=== PATIENT | male | born 1980 ===

== ENCOUNTER 2021-10-31 23:11 | Inpatient (IN) | payer OTHER ==
[~2021-10-31 23:11] MED LIST: Iopamidol 370 76% 100 ML VIAL ONE
[2021-10-31 23:33] LABS: Hemoglobin 15.2 g/dL (14.0-18.0); Mean Corpuscular HGB CONC 33.9 g/dL (32.0-36.0); Mean Corpuscular Hemoglobin 31.1 pg (27.0-31.0); Mean Corpuscular Volume 91.6 fL (78.0-98.0); Mean Platelet Volume 7.6 fL (7.4-10.4); Platelet Count 248 thou/uL (130-400); RBC Distribution Width 11.5 % (11.5-14.5); White Blood Cell (WBC) Count 9.6 thou/uL (4.8-10.8)
[2021-10-31] MEDS ORDERED: Boostrix 0.5 ML (Tdap) VIAL ONE (23:41)
[2021-10-31 23:44] LABS: Band 2 % (5-11); Lymphocytes 15 % (21-51); MDiff Complete? YES; Monocytes 6 % (0-10); Neutrophil 77 % (42-75)
[2021-10-31 23:45] LABS: PTT 23.5 sec (22.9-36.1); Prothrombin Time 13.6 sec (12.0-14.7)
[2021-10-31] MEDS ORDERED: Xylocaine 1% w/ Epi 1:100K 10 ML VIAL ONE (23:47)
[2021-10-31 23:50] LABS: ALT (SGPT) 54 U/L (8-55); AST (SGOT) 29 U/L (5-34); Acetaminophen Less than 6.0 mcg/mL (10.0-30.0); Albumin 4.2 g/dL (3.5-5.0); Alcohol Less than 10 mg/dL (Less than 10); Alkaline Phosphatase 80 U/L (40-110); Anion Gap 20 mmol/L (10-20); BUN (Urea Nitrogen) 21 mg/dL (8.9-20.6); Bilirubin, Total 0.7 mg/dL (0.2-1.2); Calc. Creatinine Clearance 0 mL/min (70-130); Carbon Dioxide 14 mmol/L (22-29); Chloride 104 mmol/L (98-107); Globulin 3.1 g/dL (2.4-3.5); Glucose 136 mg/dL (70-105); Potassium 3.9 mmol/L (3.5-5.1); Protein, Total 7.3 g/dL (6.0-8.3); Salicylate Less than 8.0 mg/dL (15.0-30.0); Sodium 134 mmol/L (136-145)
[2021-11-01] MEDS ORDERED: Morphine 4 MG/ML VIAL ONE (00:03)
[2021-11-01] MEDS ORDERED: Midazolam HCl 2 mg/2 ml Vial ONE (00:53)
[2021-11-01] MEDS ORDERED: Ketamine 50 MG/ML (10ML VIAL) ONE (00:53)
[2021-11-01] MEDS ORDERED: Ondansetron PF 4 MG/2 ML Vial ONE (00:59)
[2021-11-01] MEDS ORDERED: Dexamethasone 20 MG/5 ML VIAL ONE (00:59)
[2021-11-01] MEDS ORDERED: PROPOFOL 200 MG/20 ML VIAL ONE (00:59)
[2021-11-01] MEDS ORDERED: Rocuronium Bromide 10 MG/ML (10ML VIAL) ONE (00:59)
[2021-11-01] MEDS ORDERED: Glycopyrrolate 0.2 MG/ML 5 ML SYRINGE ONE (00:59)
[2021-11-01] MEDS ORDERED: Succinylcholine 200 MG/10 ml SYRINGE FS ONE (00:59)
[2021-11-01 01:02] LABS: SARS-CoV-2 NAA Rapid Test Not Detected (NotDetected)
[2021-11-01 01:09] LABS: Bacteria/HPF None Seen HPF (None Seen); Bilirubin Negative (Negative); Blood, Urine 1+ (Negative); Clarity Clear (Clear); Glucose, Urine (Dipstick) Normal (Negative); Ketone, Urine Negative (Negative); Leukocyte Negative Leu/uL (Negative); Nitrite Negative (Negative); Protein, Urine (Dipstick) 20 mg/dL (Neg-Trace); RBC/HPF 0-3 HPF (0-3); Squamous Epithelial None Seen HPF (0-3); Urobilinogen Normal mg/dL (Less than 2); WBC/HPF 0-3 HPF (0-3); pH, Urine 6.5 (5.0-9.0)
[2021-11-01 01:17] LABS: Amphetamine Detected (NotDetected); Barbiturates Screen Not Detected (NotDetected); Benzodiazepine Screen Not Detected (NotDetected); Cocaine Metabolite Screen Not Detected (NotDetected); Methadone Not Detected (NotDetected); Methamphetamine Detected (NotDetected); Opiate Screen Detected (NotDetected); Oxycodone Screen Not Detected (NotDetected); Phencyclidine (PCP) Not Detected (NotDetected); THC/Cannabinoid Screen Not Detected (NotDetected); Tricyclic Screen Not Detected (NotDetected)
[2021-11-01] MEDS ORDERED: Dextrose 50% Abboject 50 ML SYRINGE SLOW IVP PRN (01:19)
[2021-11-01] MEDS ORDERED: Dextrose 5% in Water 1,000 ML IV PRN (01:19)
[2021-11-01] MEDS ORDERED: Ondansetron PF 4 MG/2 ML Vial IVP PRN ×2 (01:19→03:47)
[2021-11-01] MEDS ORDERED: hydrALAZINE 20 MG/ML VIAL SLOW IVP PRN (01:19)
[2021-11-01] MEDS ORDERED: Morphine 4 MG/ML VIAL SLOW IVP PRN ×4 (01:19→03:43)
[2021-11-01] MEDS ORDERED: Fentanyl 250 MCG/5 ML VIAL ONE (01:24)
[2021-11-01] MEDS ORDERED: HYDROcodone/Acetaminophen 5/325 mg Tablet PO PRN (03:43)
[2021-11-01] MEDS ORDERED: Acetaminophen 325 MG TAB PO PRN ×2 (03:45→03:46)
[2021-11-01] MEDS ORDERED: Sodium Chloride 0.9% 1,000 ML IV SCH (04:00)
[2021-11-01] MEDS ORDERED: D5 1/2 NS w/20 mEq KCL 1,000 ML IV SCH (04:00)
[2021-11-01 05:22] VITALS: BMI 28.5
[2021-11-01 05:25] LABS: #Lymphocytes 0.7 thou/uL (1.20-3.40); #Monocytes 0.3 thou/uL (0.11-0.59); #Neutrophils 10.8 thou/uL (1.40-6.50); %Basophils 0.1 % (0.0-1.0); %Eosinophils 0.1 % (0.0-10.0); %Lymphocytes 5.9 % (21.0-51.0); %Monocytes 2.3 % (0.0-10.0); %Neutrophils 91.7 % (42.0-75.0); Hemoglobin 13.6 g/dL (14.0-18.0); Mean Corpuscular HGB CONC 32.2 g/dL (32.0-36.0); Mean Corpuscular Hemoglobin 30.5 pg (27.0-31.0); Mean Corpuscular Volume 94.8 fL (78.0-98.0); Mean Platelet Volume 7.3 fL (7.4-10.4); Platelet Count 236 thou/uL (130-400); RBC Distribution Width 11.4 % (11.5-14.5); Red Blood Cell (RBC) Count 4.46 mill/uL (4.70-6.10); White Blood Cell (WBC) Count 11.7 thou/uL (4.8-10.8)
[2021-11-01] MEDS: CEFAZOLIN 1 GM in Sodium Chloride 0.9% 100 ML IVPB SCH ×3 (05:26→20:19)
[2021-11-01 05:40] LABS: Lactic Acid 1.4 mmol/L (0.5-2.2)
[2021-11-01 05:48] LABS: Phosphorus 3.7 mg/dL (2.3-4.7)
[2021-11-01 06:12] LABS: Carbon Dioxide Less than 16 mmol/L (22-29)
[2021-11-01 06:13] LABS: BUN (Urea Nitrogen) 19 mg/dL (8.9-20.6)
[2021-11-01 06:14] LABS: Magnesium 2.1 mg/dL (1.6-2.6)
[2021-11-01] MEDS ORDERED: traMADol HCl 50 MG TAB PO PRN ×2 (07:19)
[2021-11-01] MEDS: Polyethylene Glycol 3350 17 GM Packet PO SCH (09:50)
[2021-11-01] MEDS: Famotidine/PF 20 mg/2ml Vial SLOW IVP SCH ×2 (09:51→20:19)
[2021-11-01] MEDS: Senokot S 8.6-50 MG TAB PO SCH ×2 (09:51→20:19)
[2021-11-01] MEDS: Acetaminophen 500 MG TAB PO SCH ×3 (09:51→20:19)
[2021-11-01 14:24] LABS: Chloride 112 mmol/L (98-107); Potassium 4.5 mmol/L (3.5-5.1); Sodium 139 mmol/L (136-145)
[2021-11-01 14:25] LABS: Calcium 8.7 mg/dL (7.8-10.44); Glucose 146 mg/dL (70-105)
[2021-11-01 14:27] LABS: Anion Gap 17 mmol/L (10-20)
[2021-11-01 14:29] LABS: Calc. Creatinine Clearance 107 mL/min (70-130)
[2021-11-02] MEDS: Acetaminophen 500 MG TAB PO SCH ×3 (00:57→15:14)
[2021-11-02 05:45] LABS: #Basophils 0.1 thou/uL (0.0-0.2); #Lymphocytes 3.3 thou/uL (1.20-3.40); #Neutrophils 5.8 thou/uL (1.40-6.50); %Basophils 0.5 % (0.0-1.0); %Eosinophils 0.1 % (0.0-10.0); %Lymphocytes 32.1 % (21.0-51.0); %Monocytes 9.9 % (0.0-10.0); %Neutrophils 57.3 % (42.0-75.0); Hemoglobin 11.3 g/dL (14.0-18.0); Mean Corpuscular HGB CONC 33.3 g/dL (32.0-36.0); Mean Corpuscular Hemoglobin 31.1 pg (27.0-31.0); Mean Corpuscular Volume 93.4 fL (78.0-98.0); Mean Platelet Volume 7.5 fL (7.4-10.4); Platelet Count 216 thou/uL (130-400); RBC Distribution Width 11.4 % (11.5-14.5); Red Blood Cell (RBC) Count 3.64 mill/uL (4.70-6.10); White Blood Cell (WBC) Count 10.1 thou/uL (4.8-10.8)
[2021-11-02] MEDS: CEFAZOLIN 1 GM in Sodium Chloride 0.9% 100 ML IVPB SCH ×2 (06:13→15:15)
[2021-11-02 07:15] LABS: Anion Gap 11 mmol/L (10-20); BUN (Urea Nitrogen) 19 mg/dL (8.9-20.6); Calc. Creatinine Clearance 111 mL/min (70-130); Calcium 8.5 mg/dL (7.8-10.44); Carbon Dioxide 25 mmol/L (22-29); Chloride 105 mmol/L (98-107); Glucose 109 mg/dL (70-105); Magnesium 2.2 mg/dL (1.6-2.6); Phosphorus 3.2 mg/dL (2.3-4.7); Potassium 3.7 mmol/L (3.5-5.1); Sodium 137 mmol/L (136-145)
[2021-11-02] MEDS: Senokot S 8.6-50 MG TAB PO SCH (08:42)
[2021-11-02] MEDS: Famotidine/PF 20 mg/2ml Vial SLOW IVP SCH (08:42)
[2021-11-02] MEDS: Polyethylene Glycol 3350 17 GM Packet PO SCH (08:43)
[2021-11-02 16:06] VITALS: BP 129/70; TEMP 98.3
[2021-11-02] MEDS ORDERED: Cephalexin 250 MG CAP PO SCH (18:00)
[2021-11-02] MEDS ORDERED: Senokot 8.6 MG TAB PO SCH (21:00)
[2021-11-02] MEDS ORDERED: Famotidine 20 MG TAB PO SCH (21:00)
[2021-11-03] MEDS ORDERED: Amoxicillin/Potassium Clav 500 MG TAB PO SCH (09:00)
[2021-11-03] MEDS ORDERED: Saccharomyces boulardii 250 MG CAP PO SCH (09:00)
== END 2021-11-02 19:10 | DRG 581 ==
LOC: ERS 23:11 → SDC/OP 11-01 01:01 → CCU 11-01 03:49 → SURG B 11-01 11:40
PROVIDERS: ADMIT Surgery; ATTEND Surgery
PROC: 0KQ20ZZ Repair Right Neck Muscle, Open Approach (ICD-10-PCS; principal; 2021-11-01)
PROC: 0XQHXZZ Repair Left Wrist Region, External Approach (ICD-10-PCS; 2021-11-01)
PROC: 0XQGXZZ Repair Right Wrist Region, External Approach (ICD-10-PCS; 2021-11-01)
DX: S11.81XA Laceration without foreign body of other specified part of neck, initial encounter (principal); X78.8XXA Intentional self-harm by other sharp object, initial encounter; S51.812A Laceration without foreign body of left forearm, initial encounter; S51.811A Laceration without foreign body of right forearm, initial encounter; Y92.9 Unspecified place or not applicable
CPT/HCPCS: 12002; 36415; 70491; 70498; 71045; 72170; 74018; 80048; 80053; 80306; 80307; 81003; 81015; 83605; 83735; 84100; 85025; 85610; 85730; 86850; 86900; 86901; 90471; 90715; 96374; G0390; J0690; J1100; J2250; J2270; J2405; J2704; J3010; J3480; J3490; J7050; Q9967; S0028; U0002